=== PATIENT | female | born 1960 | race African-American/Black ===

== ENCOUNTER 2019-08-04 08:55 | Observation (INO) ==
[2019-08-04] MEDS ORDERED: Naloxone 0.4 MG/ML INJ IVP ONE (09:03)
[2019-08-04] MEDS ORDERED: 0.9 % Sodium Chloride 1,000 ML IVC ONE (09:03)
[2019-08-04] MEDS ORDERED: Ondansetron 4 MG/2 ML VIAL IVP ONE (09:05)
[2019-08-04] MEDS ORDERED: Aspirin 81 MG TAB.CHEW PO STA (09:05)
[2019-08-04] MEDS ORDERED: Isovue-370 500 ML BOTTLE IVP ONE (09:10)
[2019-08-04 09:51] LABS: Eosinophils # 0.2 K/mcL (0.0-0.6); Eosinophils % 5.6 %; Hematocrit 39.7 % (35.3-44.9); Hemoglobin 13.3 g/dL (11.5-15.4); Lymphocytes # 1.3 K/mcL (0.6-4.6); Lymphocytes % 31.2 %; Mean Corpuscular HGB Conc 33.5 g/dL (31.6-35.5); Mean Corpuscular Hemoglobin 30.9 pg (28.0-33.3); Mean Corpuscular Volume 92.1 fL (83.0-100.0); Mean Platelet Volume 10.7 fL (9.4-12.4); Monocytes # 0.6 K/mcL (0.0-1.3); Monocytes % 14.3 %; Platelet Count 233 K/mcL (140-400); Red Blood Count 4.31 M/mcL (3.82-4.97); Red Cell Distribution Width 13.5 % (11.5-14.5); Segmented Neutrophils % 47.9 %; White Blood Count 4.1 K/mcL (4.3-11.1)
[2019-08-04 10:00] LABS: Prothrombin Time 11.3 Seconds (9.4-12.1)
[2019-08-04 10:03] LABS: Activated Partial Thrombo Time 37.2 Seconds (26.0-36.0)
[2019-08-04 10:12] LABS: Alanine Aminotransferase 10 Units/L (7-52); Albumin 3.9 g/dL (3.5-5.7); Albumin/Globulin Ratio 1.3 (1.1-2.2); Alkaline Phosphatase 51 Units/L (34-104); Aspartate Amino Transferase 13 Units/L (13-39); BUN/Creatinine Ratio 10 (6-26); Bilirubin,Indirect 0.4 mg/dL (0.0-1.0); Bilirubin,Total 0.4 mg/dL (0.3-1.0); Blood Urea Nitrogen 9 mg/dL (6-20); Calcium 9.2 mg/dL (8.6-10.3); Carbon Dioxide 25 mEq/L (23-29); Chloride 109 mEq/L (98-107); Creatine Kinase 308 Units/L (30-223); Ethanol < 10 mg/dL (Less than 10); Glucose 94 mg/dL (70-105); Osmolality,Calculated 286 (280-300); Potassium 4.1 mEq/L (3.5-5.1); Sodium 139 mEq/L (136-145); Total Protein 6.9 g/dL (6.4-8.9); Troponin I < 0.03 ng/mL (< 0.04); eGFR For African Americans > 60 (> 60); eGFR For Non-African Americans > 60 (> 60)
[2019-08-04] MEDS ORDERED: Metoclopramide 10 MG/2 ML VIAL IVP ONE (15:05)
[2019-08-04] MEDS ORDERED: Metoclopramide 10 MG/2 ML VIAL IVP PRN (16:57)
[2019-08-04] MEDS ORDERED: Naloxone 0.4 MG/ML INJ IVP PRN (17:01)
[2019-08-05] MEDS: OSIMERTINIB MESYLATE 80 MG PO SCH (14:43)
[2019-08-05] MEDS: *HR* Enoxaparin 60 MG/0.6 ML SYRINGE SQ SCH (16:10)
[2019-08-05] MEDS ORDERED: Acetaminophen 325 MG TABLET PO PRN (22:01)
[2019-08-06 05:14] LABS: Basophils # 0.1 K/mcL (0.0-0.2); Basophils % 1.3 %; Eosinophils # 0.2 K/mcL (0.0-0.6); Eosinophils % 5.1 %; Hematocrit 36.5 % (35.3-44.9); Hemoglobin 11.8 g/dL (11.5-15.4); Lymphocytes # 2.5 K/mcL (0.6-4.6); Lymphocytes % 56.1 %; Mean Corpuscular HGB Conc 32.3 g/dL (31.6-35.5); Mean Corpuscular Hemoglobin 30.9 pg (28.0-33.3); Mean Corpuscular Volume 95.5 fL (83.0-100.0); Monocytes # 0.5 K/mcL (0.0-1.3); Neutrophils # 1.2 K/mcL (1.6-8.9); Platelet Count 233 K/mcL (140-400); Red Blood Count 3.82 M/mcL (3.82-4.97); Red Cell Distribution Width 13.8 % (11.5-14.5); Segmented Neutrophils % 25.5 %; White Blood Count 4.5 K/mcL (4.3-11.1)
[2019-08-06 05:32] LABS: BUN/Creatinine Ratio 11 (6-26); Blood Urea Nitrogen 11 mg/dL (6-20); Carbon Dioxide 26 mEq/L (23-29); Chloride 109 mEq/L (98-107); Glucose 106 mg/dL (70-105); Osmolality,Calculated 290 (280-300); Sodium 140 mEq/L (136-145); eGFR For African Americans > 60 (> 60); eGFR For Non-African Americans 55 (> 60)
[2019-08-06] MEDS: *HR* Enoxaparin 60 MG/0.6 ML SYRINGE SQ SCH ×2 (07:12→22:23)
[2019-08-06] MEDS ORDERED: FLUoxetine 20 MG CAPSULE PO SCH (09:00)
[2019-08-06] MEDS ORDERED: Aspirin 81 MG TAB.CHEW PO SCH (09:00)
[2019-08-06] MEDS: OSIMERTINIB MESYLATE 80 MG PO SCH (09:51)
[2019-08-06 11:00] LABS: Bilirubin,Urine Small (Negative); Blood,Urine Negative (Negative); Color,Urine Yellow (Yellow); Glucose,Urine (UA) Normal (Normal); Ketones,Urine Negative (Negative); Leukocyte Esterase,Urine Small (Negative); Nitrite,Urine Negative (Negative); Protein,Urine Negative (Neg-Trace); Specific Gravity,Urine > 1.030 (1.010-1.025); Urobilinogen,Urine Normal (Normal)
[2019-08-06 11:02] LABS: Clarity,Urine Hazy (Clear); Hyaline Casts,Urine None Seen per lpf (None-Few); RBC,Urine 0-3 per hpf (0-3); Squamous Epithelial Cell,Urine Many per lpf (None-Few)
[2019-08-06 11:15] LABS: Amphetamine Screen,Urine Negative ng/mL (Cutoff=1000); Barbiturate Screen,Urine Negative ng/mL (Cutoff=200); Benzodiazepines Screen,Urine Negative ng/mL (Cutoff=200); Cannabinoid Screen,Urine Positive ng/mL (Cutoff = 50); Cocaine Screen,Urine Positive ng/mL (Cutoff= 300); Opiate Screen,Urine Negative ng/mL (Cutoff=300); Phencyclidine Screen,Urine Negative ng/mL (Cutoff=25)
[2019-08-06 11:35] LABS: Bacteria,Urine Few per hpf (None-Few); Calcium Oxalate Crystals,Urine Present; Yeast,Urine Few per hpf (None Seen)
[2019-08-06] MEDS ORDERED: Lidocaine -MPF 2% 2 ML VIAL ONE (13:08)
[2019-08-06] MEDS ORDERED: *HR* Propofol 200 MG/20 ML VIAL IVP ONE (13:08)
[2019-08-07 05:55] LABS: Basophils # 0.1 K/mcL (0.0-0.2); Basophils % 1.1 %; Eosinophils # 0.2 K/mcL (0.0-0.6); Eosinophils % 3.5 %; Hematocrit 35.7 % (35.3-44.9); Hemoglobin 11.7 g/dL (11.5-15.4); Lymphocytes # 2.4 K/mcL (0.6-4.6); Lymphocytes % 52.6 %; Mean Corpuscular HGB Conc 32.8 g/dL (31.6-35.5); Mean Corpuscular Hemoglobin 30.5 pg (28.0-33.3); Mean Platelet Volume 10.7 fL (9.4-12.4); Monocytes # 0.5 K/mcL (0.0-1.3); Monocytes % 10.6 %; Neutrophils # 1.5 K/mcL (1.6-8.9); Platelet Count 222 K/mcL (140-400); Red Blood Count 3.84 M/mcL (3.82-4.97); Red Cell Distribution Width 13.7 % (11.5-14.5); Segmented Neutrophils % 32.2 %; White Blood Count 4.5 K/mcL (4.3-11.1)
[2019-08-07 06:18] LABS: BUN/Creatinine Ratio 10 (6-26); Blood Urea Nitrogen 9 mg/dL (6-20); Calcium 8.4 mg/dL (8.6-10.3); Carbon Dioxide 24 mEq/L (23-29); Chloride 110 mEq/L (98-107); Glucose 95 mg/dL (70-105); Osmolality,Calculated 286 (280-300); Potassium 4.2 mEq/L (3.5-5.1); Sodium 139 mEq/L (136-145); eGFR For African Americans > 60 (> 60); eGFR For Non-African Americans > 60 (> 60)
[2019-08-07] MEDS: *HR* Enoxaparin 60 MG/0.6 ML SYRINGE SQ SCH (06:34)
[2019-08-07 06:52] VITALS: BP 133/80
== END 2019-08-07 08:41 | disposition left against medical advice (07) ==
LOC: 3BNU 08:55 → EMEROOARM 08:55 → SUATTDRO 13:21 → 3BNU 13:45
PROVIDERS: ADMIT Internal Medicine; ATTEND Internal Medicine
PROC: ENDOEBX (2019-08-06 13:50)